=== PATIENT | male | born 1955 | race Caucasian/White ===

== ENCOUNTER 2024-05-08 16:49 | Emergency (ER) | payer OTHER ==
[~2024-05-08] VITALS: Ht 182.9 cm; Wt 95.0 kg
[2024-05-08] VITALS (11 sets, daily range): BP systolic 115–133; BP diastolic 65–76
[2024-05-08] MEDS ORDERED: ASPIRIN 81 MG/TAB PO ONE (17:00)
[2024-05-08 17:17] LABS: BASO% 0.5 % (0-3); EOS% 4.4 % (0-8); HEMATOCRIT 40.1 % (39.0-50.0); HEMOGLOBIN 13.2 g/dl (14.0-18.0); IMMATURE GRANULOCYTES 0.2 % (0.0-5.0); LYMPH% 13.3 % (15-41); MEAN CELL VOLUME 89.3 fL CALC (80.0-100.0); MEAN CORPUSCULAR HGB 29.4 pG CALC (26.0-32.0); MEAN CORPUSCULAR HGB CONC 32.9 g/dL CAL (32.0-36.0); MONO% 11.1 % (2-13); NEUT# 6.78 thou/uL (1.82-7.42); NEUT% 70.5 % (42-76); RED BLOOD COUNT 4.49 mill/uL (4.70-6.10); RED CELL DISTRI WIDTH 13.1 % (11.5-15.5)
[2024-05-08 17:29] LABS: ALKALINE PHOSPHATASE 88 u/l (38-126); ANION GAP 7 (6-22 (CALC)); BILIRUBIN, TOTAL 0.6 mg/dL (0.2-1.3); BUN 15 mg/dL (8-23); BUN/CREATININE RATIO 21 (12-20 (CALC)); CARBON DIOXIDE 29 mmol/l (22-30); CHLORIDE 105 mmol/l (95-108); CREATININE 0.7 mg/dL (0.7-1.3); ESTIMATED GFR 102 ML/MIN (>=90 (CALC)); LIPASE 211 u/l (23-300); POTASSIUM 4.1 mmol/l (3.5-5.1); SGOT/AST 29 u/l (19-48); SODIUM 137 mmol/l (137-146); TOTAL PROTEIN 6.7 g/dL (6.3-8.2)
[2024-05-08] MEDS ORDERED: LANTUS100 UNIT (20:10)
[2024-05-08] MEDS ORDERED: ATORVASTATIN CA40 MG PO (20:11)
[2024-05-08] MEDS ORDERED: LEVOTHYROXIN100 MCG PO (20:12)
[2024-05-08] MEDS ORDERED: LANTUS100 UNIT SC (20:17)
[2024-05-08] MEDS ORDERED: HUMULIN R SC (20:21)
[2024-05-08] MEDS ORDERED: METFORMIN500 M2 PO (20:23)
[2024-05-08] MEDS ORDERED: METOPROL TAR100 MG PO (20:24)
[2024-05-08] MEDS ORDERED: OMEPRAZOLE DR40 MG PO (20:26)
[2024-05-08] MEDS ORDERED: HYDROCHLOROTHIA50 MG PO (20:28)
[2024-05-08] MEDS ORDERED: LISINOPRIL10 MG PO (20:29)
[2024-05-08] MEDS ORDERED: TUMS E-X 750750 MG PO (20:31)
== END 2024-05-08 20:51 | disposition designated cancer center or children's hospital (05) | DRG 313 ==
LOC: ED 16:49
PROVIDERS: Nurse Practitioner
DX: R07.89 Other chest pain (principal); I10 Essential (primary) hypertension; E11.9 Type 2 diabetes mellitus without complications; E78.5 Hyperlipidemia, unspecified